=== PATIENT | male | born 1985 | race Caucasian/White ===

== ENCOUNTER 2025-01-28 21:33 | Emergency (ER) | payer OTHER ==
--- NOTE | 2025-01-28 22:14 | ED ---
General Adult HPI - General Chief complaint: Recheck/Abnormal Lab/Rx Stated complaint: Testicular pain Time Seen by Provider: 01/28/25 21:45 Source: patient, RN notes reviewed, old records reviewed Mode of arrival: ambulatory Limitations: no limitations - History of Present Illness Initial comments: 39-year-old male presenting with right testicular pain. Patient's pain began at noon today he states it was initially minor and then about 30 minutes prior to arrival his pain worsened. Patient states he did have a minor trauma to the testicle about 1 week ago. There was no immediate pain after this. No dysuria or hematuria. - Related Data Allergies Allergy/AdvReac Type Severity Reaction Status Date / Time No Known Allergies Allergy Verified 01/28/25 21:54 Review of Systems ROS Statement: Those systems with pertinent positive or pertinent negative responses have been documented in the HPI. ROS Other: All systems not noted in ROS Statement are negative. Past Medical History Past Psychological History: No Psychological Hx Reported Smoking Status: Current every day smoker, Vaper Past Alcohol Use History: None Reported Past Drug Use History: None Reported General Exam Limitations: no limitations General appearance: alert, in no apparent distress Head exam: Present: atraumatic, normocephalic Eye exam: Present: normal appearance, PERRL ENT exam: Present: normal exam Neck exam: Present: normal inspection. Absent: tenderness, meningismus Respiratory exam: Present: normal lung sounds bilaterally. Absent: respiratory distress, wheezes Cardiovascular Exam: Present: regular rate, normal rhythm GI/Abdominal exam: Present: soft. Absent: distended, tenderness exam: Present: testicular tenderness, vertical testicular lie, other Extremities exam: Present: normal inspection, normal capillary refill. Absent: pedal edema Neurological exam: Present: alert, oriented X3, CN II-XII intact. Absent: motor sensory deficit Psychiatric exam: Present: normal affect, normal mood Skin exam: Present: warm, dry, intact Course Vital Signs 01/28/25 21:49 Temperature 97.8 F Pulse Rate 104 H Respiratory 18 Rate Blood Pressure 121/69 O2 Sat by Pulse 98 Oximetry Medical Decision Making - Medical Decision Making Was pt. sent in by a medical professional or institution (, PA, LICENSING REPRESENTATIVE, urgent care, hospital, or [facility]...) When possible be specific @ -No Did you speak to anyone other than the patient for history (EMS, parent, family, police, friend...)? What history was obtained from this source @ -No Did you review nursing and triage notes (agree or disagree)? Why? @ -I reviewed and agree with nursing and triage notes Were old charts reviewed (outside hosp., previous admission, EMS record, old EKG, old radiological studies, urgent care reports/EKG's, [facility] records)? Report findings @ -No old charts were reviewed Differential Diagnosis: Testicular mass, testicular torsion, epididymitis EKG interpreted by me (3pts min.). @ -As above X-rays interpreted by me (1pt min.). @ -None done CT interpreted by me (1pt min.). @ -None done U/S interpreted by me (1pt. min.). @ -Ultrasound showing bilateral hydrocele, no evidence of torsion. What testing was considered but not performed or refused? (CT, X-rays, U/S, labs)? Why? @ -None What meds were considered but not given or refused? Why? @ -None Did you discuss the management of the patient with other professionals (professionals i.e. , PA, LICENSING REPRESENTATIVE, lab, RT, psych nurse, outreach and education social worker, tile presser, teacher, landcare officer, manager of case management)? Give summary @ -No Was smoking cessation discussed for >3mins.? @ -No Was critical care preformed (if so, how long)? @ -No Were there social determinants of health that impacted care today? How? (Homelessness, low income, unemployed, alcoholism, drug addiction, transportation, low edu. Level, literacy, decrease access to med. care, fpc, rehab)? @ -No Was there de-escalation of care discussed even if they declined (Discuss DNR or withdrawal of care, Hospice)? DNR status @ -No What co-morbidities impacted this encounter? (DM, HTN, Smoking, COPD, CAD, Cancer, CVA, ARF, Chemo, Hep., AIDS, mental health diagnosis, sleep apnea, morbid obesity)? @ -None Was patient admitted / discharged? Hospital course, mention meds given and route, prescriptions, significant lab abnormalities, going to OR and other pertinent info. @ -39-year-old male with right testicle pain. Exam is unremarkable, testicle is not high riding, vertical, positive cremasteric reflex. Patient has no urinary symptoms, urinalysis is unremarkable, ultrasound shows good bilateral blood flow. There is a presence of hydrocele. Patient will elevate the scrotum, take Tylenol Motrin for pain. If symptoms persist he will follow-up with urology. Undiagnosed new problem with uncertain prognosis? @ -No Drug Therapy requiring intensive monitoring for toxicity (Heparin, Nitro, Insulin, Cardizem)? @ -No Were any procedures done? @ -No Diagnosis/symptom? @Testicular pain, hydrocele Acute, or Chronic, or Acute on Chronic? @ -[Acute Uncomplicated (without systemic symptoms) or Complicated (systemic symptoms)? @ -Default Side effects of treatment? @ -No Exacerbation, Progression, or Severe Exacerbation? @ -No Poses a threat to life or bodily function? How? (Chest pain, [place], DC, pneumonia, PE, COPD, DKA, ARF, appy, cholecystitis, CVA, Diverticulitis, Homicidal, Suicidal, threat to staff... and all critical care pts) @ -No - Lab Data Lab Results 01/28/25 Range/Units 22:30 Urine Color Yellow Urine Appearance Clear (Clear) Urine pH 6.0 (5.0-8.0) Ur Specific [place] 1.033 (1.001-1.035) Urine Protein Negative (Negative) Urine Glucose (UA) Negative (Negative) Urine Ketones Negative (Negative) Urine Blood Negative (Negative) Urine Nitrite Negative (Negative) Urine Bilirubin Negative (Negative) Urine Urobilinogen <2.0 (<2.0) mg/dL Ur Leukocyte Esterase Negative (Negative) Disposition Clinical Impression: Testicular pain, right Disposition: HOME SELF-CARE Condition: Fair Instructions (If sedation given, give patient instructions): Testicle Pain (ED) Is patient prescribed a controlled substance at d/c from ED?: No Referrals: Wilton Johns MD [Primary Care Provider] - 1-2 days Miguelito Higgins MD [STAFF PHYSICIAN] - 1-2 days Time of Disposition: 23:28
--- NOTE | 2025-01-28 22:34 | US ---
EXAMINATION TYPE: US scrotum with doppler. DATE OF EXAM: 01/28/2025 COMPARISON: NONE CLINICAL INDICATION: Male, 39 years old with history of Testicular pain; patient states pain on right side, no swelling TECHNIQUE: Grayscale, color Doppler and spectral Doppler imaging of the scrotum. FINDINGS: EXAM MEASUREMENTS: TESTICLES: Right Testicle: 4.1 x 2.6 x 4.7 cm. increased vascularity. Left Testicle: 3.3 x 2.2 x 3.5 cm EPIDIDYMIS HEAD: Right Epididymis: 1.5 x 0.9 x 1.3 cm. ? increased vascularity compared to left. There is also a 0.3 x 0.2 x 0.3cm hyperechoic area seen adjacent to the epi and testicle -appendix testi Left Epididymis: 1.5 x 0.9 x 1.6 cm . Small 2mm anechoic area seen within. There is also a 0.7 x 0.7 x 0.5cm hyperechoic area seen adjacent to the epi, - appendix testi Doppler performed to assess for testicular vascularity; good bilateral color flow and spectral wavefo zoe are seen. Presence of hydroceles: bilateral Presence of varicoceles: not seen IMPRESSION: Small to moderate-size bilateral scrotal fluid collection or hydroceles. No evidence for intratesticular mass. Symmetric blood flow to both testicles noted. [facility], , 01/28/2025 10:31 PM
[2025-01-28] MEDS: KETOROLAC 15 MG/ML 1 ML VIAL IM STA (23:01)
[2025-01-28 23:18] LABS: Bilirubin,Urine Negative (Negative); Blood,Urine Negative (Negative); Color,Urine Yellow; Glucose,Urine (UA) Negative (Negative); Ketones,Urine Negative (Negative); Leukocyte Esterase,Urine Negative (Negative); Nitrite,Urine Negative (Negative); PH, Urine 6.0 (5.0-8.0); Protein,Urine Negative (Negative); Specific Gravity,Urine 1.033 (1.001-1.035); Urobilinogen,Urine <2.0 mg/dL (<2.0)
[2025-01-28 23:51] VITALS: BP 113/74; PULSE 73; RESP 17; TEMP 98.3
== END 2025-01-28 23:45 | disposition home or self-care (01) ==
LOC: SUPCPDRO 21:33 → EC 21:33
DX: N50.811 Right testicular pain (principal); F17.290 Nicotine dependence, other tobacco product, uncomplicated
CPT/HCPCS: 81003; 93975; 76870; 99284; 96372; J1885